=== PATIENT | male | born 1985 | race Caucasian/White ===

== ENCOUNTER 2017-09-17 08:29 | Emergency (ER) | payer SELFPAY ==
[2017-09-17 09:30] LABS: APPEARANCE,URINE CLEAR; BILIRUBIN,URINE NEGATIVE (NEGATIVE); GLUCOSE, URINE NEGATIVE (NEGATIVE); KETONES,URINE NEGATIVE (NEGATIVE); LEUKOCYTE ESTERASE,URINE NEGATIVE (NEGATIVE); NITRITE,URINE NEGATIVE (NEGATIVE); PROTEIN,URINE NEGATIVE (NEGATIVE); URINE SPECIFIC GRAVITY 1.023; UROBILINOGEN,URINE NEGATIVE mg/dL (<2.0)
--- NOTE | 2017-09-17 09:43 | RADIOLOGY REPORT (SQ) ---
EXAM DESCRIPTION: CT LTD RENAL STONE PROTOCOL ON COMPLETED DATE/TIME: 09/17/2017 9:28 am REASON FOR STUDY: flank fredis n COMPARISON: None. TECHNIQUE: CT scan of the abdomen and pelvis performed without intravenous or oral contrast. Images reviewed with lung, soft tissue, and bone windows. Reconstructed coronal and sagittal MPR images revi ewed. All images stored on PACS. All CT scanners at this facility use dose modulation, iterative reconstruction, and/or weight based d osing when appropriate to reduce radiation dose to as low as reasonably achievable (ALARA). [facility]: Dose Right [facility]: CareDose [facility]: Dose Right [facility]: Teradose 4D [facility]: Smart Shop pirate RADIATION DOSE: Up-to-date CT equipment and radiation dose reduction techniques were employed. CTDIv ol: 9.6 mGy. DLP: 567 mGy-cm.mGy. LIMITATIONS: None. FINDINGS: LOWER CHEST: No significant findings. No nodules or infiltrates. NON-CONTRASTED LIVER, SPLEEN, ADRENALS: Evaluation limited by lack of IV contrast. No identified sign ificant masses. PANCREAS: No masses. No peripancreatic inflammatory changes. GALLBLADDER: No identified stones by CT criteria. No inflammatory changes to suggest cholecystitis. RIGHT KIDNEY AND URETER: No suspicious masses. Assessment limited by lack of IV contrast. No signif icant calcifications. No hydronephrosis or hydroureter. LEFT KIDNEY AND URETER: No suspicious masses. Assessment limited by lack of IV contrast. No signifi cant calcifications. No hydronephrosis or hydroureter. AORTA AND RETROPERITONEUM: No aneurysm. No retroperitoneal masses or adenopathy. BOWEL AND PERITONEAL CAVITY: No obvious masses or inflammatory changes. No free fluid. APPENDIX: Normal. PELVIS, BLADDER, AND ABDOMINAL WALL:No abnormal masses. No free fluid. Bladder normal. BONES: No significant findings. OTHER: No other significant finding. IMPRESSION: NO SIGNIFICANT OR ACUTE PROCESS IN THE ABDOMEN OR PELVIS. COMMENT: Quality ID # [id number]: Final reports with documentation of one or more dose reduction techniques (e.g., Automated exposure control, adjustment of the mA and/or kV according to patient size, use of iterative reconstruction technique) TECHNICAL DOCUMENTATION: JOB ID: [id number]- All Rights Reserved
[2017-09-17] MEDS ORDERED: KETOROLAC TROMETHAMINE 60 MG/2 ML SDV IM ONE (09:46)
--- NOTE | 2017-09-17 09:47 | ER Document Report ---
ED General - General Chief Complaint: Back Pain Stated Complaint: BACK PAIN Time Seen by Provider: 09/17/17 09:01 Mode of Arrival: Ambulatory Information source: Patient Notes: 32 yr old male presents with 2 day duration of bilateral flank pain. pt denies any urinary complaints, denies any hx or fhx of kidney stones. pt denies any trauma. 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 Patient denies any cauda equina concerns denies any IV drug use TRAVEL OUTSIDE OF THE [place] IN LAST 30 DAYS: No - HPI Onset: Other Onset/Duration: Persistent Quality of pain: Achy Severity: Mild Pain Level: 1 Associated symptoms: Body/muscle aches Exacerbated by: Movement Relieved by: Denies Similar symptoms previously: No Recently seen / treated by doctor: No - Related Data Allergies/Adverse Reactions: No Known Allergies Allergy (Unverified 09/17/17 08:33) Past Medical History - Social History Smoking Status: Never Smoker Cigarette use (# per day): No Chew tobacco use (# tins/day): No Smoking Education Provided: No Family History: Reviewed & Not Pertinent Patient has suicidal ideation: No Patient has homicidal ideation: No Renal/ Medical History: Denies: Hx Peritoneal Dialysis Review of Systems - Review of Systems Notes: REVIEW OF SYSTEMS: CONSTITUTIONAL : Denies fever, chills, or sweats. Denies recent illness. EENT: Denies eye, ear, throat, or mouth pain or symptoms. Denies nasal or sinus congestion or discharge. Denies throat, tongue, or mouth swelling or difficulty swallowing. CARDIOVASCULAR: Denies chest pain. Denies palpitations or racing or irregular heart beat. Denies ankle edema. RESPIRATORY: Denies cough, cold, or chest congestion. Denies shortness of breath, difficulty breathing, or wheezing. GASTROINTESTINAL: Admits to low back pain GENITOURINARY: Denies difficulty urinating, painful urination, burning, frequency, blood in urine, or discharge. MUSCULOSKELETAL: Denies back or neck pain or stiffness. Denies joint pain or swelling. SKIN: Denies rash, lesions or sores. HEMATOLOGIC : Denies easy bruising or bleeding. LYMPHATIC: Denies swollen, enlarged glands. NEUROLOGICAL: Denies confusion or altered mental status. Denies passing out or loss of consciousness. Denies dizziness or lightheadedness. Denies headache. Denies weakness or paralysis or loss of use of either side. Denies problems with gait or speech. Denies sensory loss, numbness, or tingling. Denies seizures. PSYCHIATRIC: Denies anxiety or stress. Denies depression, suicidal ideation, or homicidal ideation. ALL OTHER SYSTEMS REVIEWED AND NEGATIVE. Dictation was performed using [employer] voice recognition software PHYSICAL EXAMINATION: GENERAL: Well-appearing, well-nourished and in no acute distress. HEAD: Atraumatic, normocephalic. EYES: Pupils equal round and reactive to light, extraocular movements intact, sclera anicteric, conjunctiva are normal. ENT: Nares patent, oropharynx clear without exudates. Moist mucous membranes. NECK: Normal range of motion, supple without lymphadenopathy LUNGS: Breath sounds clear to auscultation bilaterally and equal. No wheezes rales or rhonchi. HEART: Regular rate and rhythm without murmurs ABDOMEN: Soft, nontender, nondistended abdomen. No guarding, no rebound. No masses appreciated. Musculoskeletal: Tenderness range of motion of bilateral flanks no midline tenderness lateral step-off no deformity NEUROLOGICAL: Cranial nerves grossly intact. Normal speech, normal gait. Normal sensory, motor exams PSYCH: Normal mood, normal affect. SKIN: Warm, Dry, normal turgor, no rashes or lesions noted. Physical Exam - Vital signs Vitals: Temp Pulse Resp BP Pulse Ox 98.4 F 85 16 129/90 H 97 09/17/17 08:33 09/17/17 08:33 09/17/17 08:33 09/17/17 08:33 09/17/17 08:33 Course - Re-evaluation Re-evalutation: 09/17/17 14:46 Urinalysis noted no sign of infection no blood, patient was sent for a CT to rule out any kidney stone or any intra-abdominal source of injury this was all quite benign, physical examination is consistent with musculoskeletal pain patient will be treated with steroids understand the risks and benefits of this medication. Her strict return precautions have been provided to him After performing a Medical Screening Examination, I estimate there is LOW risk for EXPANDING OR RUPTURED ABDOMINAL AORTIC ANEURYSM, CAUDA EQUINA SYNDROME, EPIDURAL MASS LESION, or HERNIATED DISK CAUSING SEVERE SPINAL STENOSIS, thus I consider the discharge disposition reasonable. I have reevaluated this patient multiple times and no significant life threatening changes are noted. The patient and I have discussed the diagnosis and risks, and we agree with discharging home and close follow-up. We also discussed returning to the Emergency Department immediately if new or worsening symptoms occur with the understanding that symptoms and presentations can change. We have discussed the symptoms which are most concerning (e.g., saddle anesthesia, urinary or bowel incontinence or retention, changing or worsening pain) that necessitate immediate return. - Vital Signs Vital signs: Temp Pulse Resp BP Pulse Ox 98.1 F 74 16 127/84 H 99 09/17/17 10:29 09/17/17 10:29 09/17/17 10:29 09/17/17 10:29 09/17/17 10:29 - Diagnostic Test Radiology reviewed: Image reviewed, Reports reviewed - No acute abdominal Discharge - Discharge Clinical Impression: Flank pain, Muscle pain Condition: Stable Disposition: HOME, SELF-CARE Instructions: Low Back Pain ([facility]) Additional Instructions: Follow up with your physician tomorrow for further care or return to the ED IMMEDIATELY if symptoms worsen or new concerns occur. If you cannot afford to follow up with your primary care physician a list of low cost clinics have been provided at the end of your discharge papers as well. Prescriptions: Naproxen 500 mg PO Q8 #30 tablet Prednisone [Deltasone 20 mg Tablet] 3 tab PO DAILY 5 Days tablet
[2017-09-17 10:34] VITALS: BP 127/84
== END 2017-09-17 10:29 | disposition home or self-care (01) ==
LOC: ER 08:29
DX: R10.9 Unspecified abdominal pain (principal); M79.1 Myalgia
CPT/HCPCS: 99284; 96372; 81001; 76380; J1885

== ENCOUNTER 2017-11-28 10:57 | Emergency (ER) | payer SELFPAY | END 2017-11-28 14:15 | disposition left against medical advice (07) | LOC: ER 10:57 | DX: Z53.21 Procedure and treatment not carried out due to patient leaving prior to being seen by health care provider (principal) ==

== ENCOUNTER 2018-02-22 09:26 | Emergency (ER) | payer SELFPAY ==
[2018-02-22] MEDS ORDERED: TETRACAINE HCL 0.5% OPH SOLN 2 ML OS ONE (10:14)
[2018-02-22] MEDS ORDERED: TETRACAINE HCL 0.5% OPH SOLN 2 ML ONE (10:16)
[2018-02-22] MEDS ORDERED: ERYTHROMYCIN 0.5% OPH OINT 1 GM UNIT DOSE OS ONE (12:14)
--- NOTE | 2018-02-22 12:20 | ER Document Report ---
ED Eye Complaint - General Mode of Arrival: Ambulatory Information source: Patient TRAVEL OUTSIDE OF THE [place] IN LAST 30 DAYS: No - HPI Onset: Yesterday Eye location: Left Injury: Yes Occurred at: Outdoors Quality of pain: Burning Severity: Moderate Pain Level: 4 Exposure: Other - States he felt something fall in his eye Associated symptoms: Pain, Redness - General Chief Complaint: Eye Problem Stated Complaint: LEFT EYE REDNESS, IRRITATION, PAIN Time Seen by Provider: 02/22/18 09:54 Notes: 32-year-old male presented ED for complaint of pain in his left eye. He states he was working in the house yesterday and felt something get in his eye. He states he cannot find anything in the eye but this morning he woke up and it hurt to blink or move his eye. He states his eyes sensitive to light. States his eye is still blurry red and watery. 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 denies: Thyroid Disfunction Patient has suicidal ideation: No Patient has homicidal ideation: No - Past Medical History Cardiac Medical History: Reports: None Pulmonary Medical History: Reports: None EENT Medical History: Reports: None Neurological Medical History: Reports: None Endocrine Medical History: Reports: None Renal/ Medical History: Reports: None Malignancy Medical History: Reports None GI Medical History: Reports: None Musculoskeltal Medical History: Reports Hx Musculoskeletal Trauma Skin Medical History: Reports None Psychiatric Medical History: Reports: None Traumatic Medical History: Reports: None Infectious Medical History: Reports: None Past Surgical History: Reports: Hx Oral Surgery - Immunizations Immunizations up to date: Yes Review of Systems - Review of Systems Constitutional: No symptoms reported EENT: Eye pain, Blurred vision Cardiovascular: No symptoms reported Respiratory: No symptoms reported Gastrointestinal: No symptoms reported Genitourinary: No symptoms reported Male Genitourinary: No symptoms reported Musculoskeletal: No symptoms reported Skin: No symptoms reported Hematologic/Lymphatic: No symptoms reported Neurological/Psychological: No symptoms reported Physical Exam - Vital signs Interpretation: Normal - General General appearance: Appears well, Alert - HEENT Head: Normocephalic, Atraumatic Eyes: Normal Conjunctiva: Other - Uptake of flourescein in the lateral conjunctival Cornea: No: Corneal abrasion, Corneal ulcer, Flourescein stain uptake Pupils: PERRL Visual acuity- Right eye: 20/30 Visual acuity- Left eye: 20/40 Corrective lenses worn: No Ears: Normal External canal: Normal Tympanic membrane: Normal Sinus: Normal Nasal: Normal Pharynx: Normal Neck: Normal - Respiratory Respiratory status: No respiratory distress Chest status: Nontender Breath sounds: Normal Chest palpation: Normal - Cardiovascular Rhythm: Regular Heart sounds: Normal auscultation Murmur: No - Abdominal Inspection: Normal Distension: No distension Bowel sounds: Normal Tenderness: Nontender Organomegaly: No organomegaly - Back Back: Normal, Nontender - Extremities General upper extremity: Normal inspection, Nontender, Normal color, Normal ROM , Normal temperature General lower extremity: Normal inspection, Nontender, Normal color, Normal ROM , Normal temperature, Normal weight bearing. No: Misbah's sign - Neurological Neuro grossly intact: Yes Cognition: Normal Orientation: AAOx4 [place] Coma Scale Eye Opening: Spontaneous [place] Coma Scale Verbal: Oriented [place] Coma Scale Motor: Obeys Commands [place] Coma Scale Total: 15 Speech: Normal Motor strength normal: LUE, RUE, LLE, RLE Sensory: Normal - Psychological Associated symptoms: Normal affect, Normal mood - Skin Skin Temperature: Warm Skin Moisture: Dry Skin Color: Normal - Vital signs Vitals: Temp Pulse Resp BP Pulse Ox 98.0 F 87 18 112/74 97 02/22/18 09:30 02/22/18 09:30 02/22/18 09:30 02/22/18 09:30 02/22/18 09:30 Course - Re-evaluation Re-evalutation: 02/22/18 21:33 Dr. concepcion came and reassess the eye after I was not able to see corneal abrasion. I also was not able to find any foreign body. He suggested patient be placed on erythromycin ointment. Patient was given erythromycin ointment and discharged home with a prescription. 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 (JOSE MARIA AGRAWAL) 02/24/18 11:13 Wood's lamp exam showed abrasion to sclera. No evidence of FB or corneal abrasion. Area in question is also where patient is experiencing pain. (LILLIAN CONCEPCION H) - Vital Signs Vital signs: Temp Pulse Resp BP Pulse Ox 98.7 F 88 18 128/77 H 99 02/22/18 12:39 02/22/18 12:39 02/22/18 12:39 02/22/18 12:39 02/22/18 12:39 Discharge - Discharge Clinical Impression: Abrasion of sclera of left eye Qualifiers: Encounter type: initial encounter Qualified Code(s): S05.8X2A - Other injuries of left eye and orbit, initial encounter Condition: Stable Disposition: HOME, SELF-CARE Additional Instructions: He was seen today for abrasion to the sclera of your left eye. This is usually caused by something in her eye scratching her eye. There is no foreign body in your eye at this time. You will need to use the erythromycin ointment to your eye 4 times a day for the next 3-5 days. You will need to follow-up with bank boss. FOLLOW-UP CARE: If you have been referred to a physician for follow-up care, call the physician s office for an appointment as you were instructed or within the next two days. If you experience worsening or a significant change in your symptoms, notify the physician immediately or return to the Emergency Department at any time for re-evaluation. Prescriptions: Erythromycin Base [E-Mycin 0.5% Oph Oint 1 gm Unit Dose] 1 applic LFT_EYE QID # 1 oint...g. Forms: Return to Work Referrals: KIESHA FREIRE MD [ACTIVE STAFF] - 02/22/18
[2018-02-22 12:40] VITALS: BP 128/77
== END 2018-02-22 12:39 | disposition home or self-care (01) ==
LOC: ER 09:26
DX: S05.8X2A Other injuries of left eye and orbit, initial encounter (principal); H57.8 Other specified disorders of eye and adnexa; W20.8XXA Other cause of strike by thrown, projected or falling object, initial encounter; Y92.009 Unspecified place in unspecified non-institutional (private) residence as the place of occurrence of the external cause; Z87.891 Personal history of nicotine dependence
CPT/HCPCS: 99284

== ENCOUNTER 2019-05-30 16:19 | Emergency (ER) | payer SELFPAY ==
[2019-05-30 16:36] VITALS: BP 136/86
== END 2019-05-30 18:50 | disposition left against medical advice (07) ==
LOC: ER 16:19
DX: Z53.21 Procedure and treatment not carried out due to patient leaving prior to being seen by health care provider (principal); L02.91 Cutaneous abscess, unspecified

== ENCOUNTER 2019-06-05 14:50 | Emergency (ER) | payer SELFPAY ==
[2019-06-05 14:58] VITALS: BP 132/84
[2019-06-05] MEDS ORDERED: KETOROLAC TROMETHAMINE 60 MG/2 ML SDV IM ONE (15:46)
--- NOTE | 2019-06-05 15:52 | ER Document Report ---
ED Extremity Problem, Upper - General Chief Complaint: Arm Injury Stated Complaint: LEFT ARM PAIN Time Seen by Provider: 06/05/19 14:57 Primary Care Provider: [facility] [Provider Group] - Follow up as needed Mode of Arrival: Ambulatory Information source: Patient Notes: 32-year-old male presented to ED for complaint of left elbow pain. He states he was on the trampoline last night when somehow he injured his elbow. Patient is alert oriented respirations regular and unlabored speaking in full sentences. TRAVEL OUTSIDE OF THE [place] IN LAST 30 DAYS: No - HPI Patient complains to provider of: Injury, Pain, Left, Elbow Onset: Yesterday Recent injury: Yes Where: Outdoors Quality of pain: No pain, Sharp Severity of pain: Moderate Pain Level: 3 Context: Fall Exacerbated by: Movement, Exertion Relieved by: Rest Similar symptoms previously: Yes Recently seen / treated by doctor: Yes - Related Data Allergies/Adverse Reactions: No Known Allergies Allergy (Verified 06/05/19 14:51) Past Medical History - General Information source: Patient - Social History Smoking Status: Former Smoker Frequency of alcohol use: Social Drug Abuse: None 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 denies: Thyroid Disfunction Patient has suicidal ideation: No Patient has homicidal ideation: No - Past Medical History Cardiac Medical History: Reports: None Pulmonary Medical History: Reports: None EENT Medical History: Reports: None Neurological Medical History: Reports: None Endocrine Medical History: Reports: None Renal/ Medical History: Reports: None Malignancy Medical History: Reports None GI Medical History: Reports: None Musculoskeletal Medical History: Reports Hx Musculoskeletal Trauma Skin Medical History: Reports None Psychiatric Medical History: Reports: None Traumatic Medical History: Reports: Hx Fractures - arm Past Surgical History: Reports: Hx Oral Surgery, Other - cyst from back - Immunizations Immunizations up to date: Yes Review of Systems - Review of Systems Constitutional: No symptoms reported EENT: No symptoms reported Cardiovascular: No symptoms reported Respiratory: No symptoms reported Gastrointestinal: No symptoms reported Genitourinary: No symptoms reported Male Genitourinary: No symptoms reported Musculoskeletal: Joint pain - Left elbow, Joint swelling - Left elbow Skin: No symptoms reported Hematologic/Lymphatic: No symptoms reported Neurological/Psychological: No symptoms reported Physical Exam - Vital signs Vitals: Temp Pulse Resp BP Pulse Ox 98.4 F 99 16 132/84 H 96 06/05/19 14:57 06/05/19 14:57 06/05/19 14:57 06/05/19 14:57 06/05/19 14:57 Interpretation: Normal - General General appearance: Appears well, Alert - HEENT Head: Normocephalic, Atraumatic Eyes: Normal Pupils: PERRL - Respiratory Respiratory status: No respiratory distress Chest status: Nontender Breath sounds: Normal Chest palpation: Normal - Cardiovascular Rhythm: Regular Heart sounds: Normal auscultation Murmur: No - Abdominal Inspection: Normal Distension: No distension Bowel sounds: Normal Tenderness: Nontender Organomegaly: No organomegaly - Back Back: Normal, Nontender - Extremities General upper extremity: Normal color, Normal temperature General lower extremity: Normal inspection, Nontender, Normal color, Normal ROM, Normal temperature, Normal weight bearing. No: Misbah's sign Elbow: Tender, Ecchymosis, Limited ROM - Due to pain. No: Abrasion, Deformity, Dislocation, Instability, Joint effusion, Laceration, Swollen bursa - Neurological Neuro grossly intact: Yes Cognition: Normal Orientation: AAOx4 [place] Coma Scale Eye Opening: Spontaneous [place] Coma Scale Verbal: Oriented [place] Coma Scale Motor: Obeys Commands [place] Coma Scale Total: 15 Speech: Normal Motor strength normal: LUE, RUE, LLE, RLE Sensory: Normal - Psychological Associated symptoms: Normal affect, Normal mood - Skin Skin Temperature: Warm Skin Moisture: Dry Skin Color: Normal Course - Re-evaluation Re-evalutation: 06/05/19 20:58 Patient had a minimally displaced fracture of the proximal radius. He was treated with a posterior long-arm splint and ibuprofen and instructed to follow- up with primary care and orthopedics. Patient was able to verbalize understanding and agreement with treatment plan and he was discharged home. - Vital Signs Vital signs: Temp Pulse Resp BP Pulse Ox 98.4 F 99 16 132/84 H 96 06/05/19 14:57 06/05/19 14:57 06/05/19 14:57 06/05/19 14:57 06/05/19 14:57 - Diagnostic Test Radiology reviewed: Image reviewed, Reports reviewed Procedures - Immobilization Left Elbow Time completed: 17:35 Pre-Proc Neuro Vasc Exam: Normal Immobilizer type: Long arm posterior, Sling Performed by: PCT Post-Proc Neuro Vasc Exam: Normal Alignment checked and good: Yes Discharge - Discharge Clinical Impression: Fracture of proximal end of left radius Qualifiers: Encounter type: initial encounter Fracture type: closed Fracture morphology: unspecified fracture morphology Qualified Code(s): S52.102A - Unspecified fracture of upper end of left radius, initial encounter for closed fracture Condition: Stable Disposition: HOME, SELF-CARE Instructions: Family Physicians / Practices Additional Instructions: Fractured Radius The bone called the radius is fractured. A cast or splint is used to protect the fracture. For the first few days after the injury, the arm should be elevated and ice packed. Healing takes from three to eight weeks, depending on the age of the patient and the seriousness of the fracture. Your doctor has explained the treatment plan. It's important that you follow up as instructed to prevent complications. Call the doctor or return at once if severe pain or swelling occur, or if the hand becomes numb, swollen, or discolored. Splint Pending Casting Your injury can't be casted until the swelling has subsided. Therefore, a temporary splint has been placed to protect the injury. Full use of an injured area is not possible in a splint. You should follow the doctor's instructions concerning rest, ice, and elevation of the injury. Never do anything which causes pain under the splint. Keep the splint on ALL THE TIME until you return for casting. If there is unexpected severe pain, or numbness, discoloration, or swelling beyond the splint, you should return at once. Sling to be Used You are to use a sling. This is to rest the area, and to prevent it from hanging downward. Use this sling for at least 48 hours (or longer if so instructed by the doctor). Some types of splints will break if not supported by the sling, so the sling must be used as long as the splint. Ice can be placed inside the sling over the injured area. Once you remove the sling, you should not encounter pain when you use the arm and hand. If you do feel pain beneath the cast or splint, you must continue use of the sling. ICE & ELEVATION: Apply ice packs frequently against the painful area. Many different schedules are recommended, such as "20 minutes on, 20 minutes off" or "one hour ice, two hours rest." If you need to work, you may need to go longer between ice treatments. You should plan to have the area ice packed AT LEAST one-fourth of the time. The ice should be applied over the wrap, tape, or splint, or over a layer of cloth -- not directly against the skin. Some ice bags have a built-in cloth and can be put directly on the skin. Your injured part should be elevated as much as possible over the next 48 hours. Try to keep the injury above the level of the heart. Avoid use of the injured area. Elevation and rest will decrease the swelling. USE OF [id number] IBUPROFEN: Ibuprofen (Advil, Nuprin, Medipren, Motrin IB) is a medication for fever and pain control. In addition, it has anti- inflammatory effects which may be beneficial, especially in the treatment of injuries. It's best to take ibuprofen with food. Persons with ulcer disease or allergy to aspirin should notify their physician of this before taking ibuprofen. Ibuprofen can be given every four to six hours, for a total of four doses daily. Age Pain or fever dose Antiinflammatory dose 6-8 yr 200 mg (1 tab) 200 mg (1 tab) 9-11 yr 200 mg (1 tab) 200-400 mg (1-2 tab) 11-14 yr 200-400 mg (1-2 tab) 400 mg (2 tab) 15-adult 400 mg (2 tab) 600 mg (3 tab) FOLLOW-UP CARE: If you have been referred to a physician for follow-up care, call the physicians office for an appointment as you were instructed or within the next two days. If you experience worsening or a significant change in your symptoms, notify the physician immediately or return to the Emergency Department at any time for re-evaluation. Forms: Elevated Blood Pressure, Return to Work Referrals: [facility] [Provider Group] - Follow up as needed
--- NOTE | 2019-06-05 16:44 | RADIOLOGY REPORT (SQ) ---
EXAM DESCRIPTION: ELBOW LEFT OVER 2 VIEWS COMPLETED DATE/TIME: 06/05/2019 4:19 pm REASON FOR STUDY: injuried on trampoline COMPARISON: None. NUMBER OF VIEWS: Four views. TECHNIQUE: AP, lateral, and both oblique radiographic images acquired of the left elbow. LIMITATIONS: None. FINDINGS: MINERALIZATION: Normal. BONES: Acute minimally displaced fracture, left proximal radius metaphysis with an arrow best shown o n the oblique view. No extension to the radial head articular surface. Distal left humerus, proximal ulna are intact. JOINT: There is a left effusion, with elevation of the ventral and dorsal fat pads. SOFT TISSUES: No soft tissue swelling. No foreign body. OTHER: No other significant finding. IMPRESSION: Acute minimally displaced left proximal radius metaphysis fracture with left elbow joint effusion TECHNICAL DOCUMENTATION: JOB ID: [id number] [employer] All Rights Reserved Reading location - IP/workstation name: [email or web address]
== END 2019-06-05 17:55 | disposition home or self-care (01) ==
LOC: ER 14:50
DX: S52.102A Unspecified fracture of upper end of left radius, initial encounter for closed fracture (principal); X58.XXXA Exposure to other specified factors, initial encounter
CPT/HCPCS: 99283; 96372; 73080; 29105; J1885

== ENCOUNTER 2019-07-14 15:32 | Emergency (ER) | payer SELFPAY ==
[2019-07-14 16:05] VITALS: BP 118/88
== END 2019-07-14 17:07 | disposition left against medical advice (07) ==
LOC: ER 15:32
DX: Z53.21 Procedure and treatment not carried out due to patient leaving prior to being seen by health care provider (principal)